=== PATIENT | female | born 1970 | race Caucasian/White ===

== ENCOUNTER → 2019-03-13 | Outpatient (REF) | payer BC | LOC: M LAB REF 15:40 → M LAB LCGH 15:40 | PROVIDERS: ATTEND Neuromusculoskeletal Medicine & OMM | DX: L82.1 Other seborrheic keratosis (principal) ==

== ENCOUNTER 2021-01-12 09:41 | Day surgery (SDC) | payer BC ==
[~2021-01-12] VITALS: Ht 157.5 cm; Wt 77.1 kg
[~2021-01-12 09:41] MED LIST: ERGO500029 PO; ESOM40CA35 PO; EZET10TA21 PO; LEVO50TA5 PO; LEVOTAB10 PO; NS 1,000 ML IV ONE; ZOLO100T PO
[2021-01-12] MEDS ORDERED: propofoL 500 MG/50 ML VIAL As Ordered ONE (12:02)
[2021-01-12] MEDS ORDERED: fentaNYL 100 MCG/2 ML INJECTION (J3010) As Ordered ONE (12:02)
[2021-01-12] MEDS ORDERED: LIDOCAINE 2% 100MG/5ML SDV (FOR ANES.) As Ordered ONE (12:02)
--- NOTE | 2021-01-12 12:11 | ROOR ---
Patient Name: Gabrielle An Procedure Date: 01/12/2021 11:53 AM Date of : 1970 Age: 50 Room: [facility] Gender: Female Note Status: Finalized Procedure: Upper GI endoscopy + Balloon Dilatation + Biopsies Indications: Dysphagia, Heartburn Providers: Connor Stoner MD Referring MD: David Salcedo Do Requesting Provider: Medicines: Monitored Anesthesia Care Complications: No immediate complications. Procedure: Pre-Anesthesia Assessment: - The heart rate, respiratory rate, oxygen saturations, blood pressure, adequacy of pulmonary ventilation, and response to care were monitored throughout the procedure. The Endoscope was introduced through the mouth, and advanced to the second part of duodenum. The upper GI endoscopy was accomplished without difficulty. The patient tolerated the procedure well. Findings: The Z-line was regular and was found 35 cm from the incisors. A TTS dilator was passed through the scope. Dilation with an 18-19-20 mm balloon dilator was performed to 20 mm. The dilation site was examined and showed no change. Multiple biopsies were obtained with cold forceps for evaluation of eosinophilic esophagitis randomly in the mid esophagus. No other significant abnormalities were identified in a careful examination of the stomach. The exam of the duodenum was otherwise normal. Impression: - Z-line regular, 35 cm from the incisors. Dilated. - Multiple biopsies were obtained in the mid esophagus. - The examination was otherwise normal. Recommendation: - Patient has a contact number available for emergencies. The signs and symptoms of potential delayed complications were discussed with the patient. Return to normal activities tomorrow. Written discharge instructions were provided to the patient. - Resume previous diet. - Discharge patient to home. - Follow an antireflux regimen. - Continue present medications. - Await pathology results. - Telephone GI clinic for pathology results in 1 week. - Return to referring physician. - Return to GI office in 2 months. - The findings and recommendations were discussed with the patient. Procedure Code(s): --- Professional --- 90686, Esophagogastroduodenoscopy, flexible, transoral; with transendoscopic balloon dilation of esophagus (less than 30 mm diameter) Diagnosis Code(s): --- Professional --- R13.10, Dysphagia, unspecified R12, Heartburn CPT copyright 2019 [employer]. All rights reserved. The codes documented in this report are preliminary and upon heat transfer technician review may be revised to meet current compliance requirements. Connor Stoner MD Connor Stoner MD 01/12/2021 12:10:37 PM Electronically signed by Connor Stoner MD Number of Addenda: 0 Note Initiated On: 01/12/2021 11:53 AM Estimated Blood Loss: Estimated blood loss: none.
[2021-01-12 12:30] VITALS: BP 137/83
== END 2021-01-12 12:31 | disposition home or self-care (01) ==
LOC: M OPP 09:41
PROVIDERS: ATTEND Internal Medicine Gastroenterology
DX: R12 Heartburn (principal); R13.10 Dysphagia, unspecified; K21.9 Gastro-esophageal reflux disease without esophagitis; Z79.899 Other long term (current) drug therapy; Z88.1 Allergy status to other antibiotic agents; Z88.8 Allergy status to other drugs, medicaments and biological substances
CPT/HCPCS: 43239; 43249; 88305; J3010